=== PATIENT | male | born 1990 | race Caucasian/White ===

== ENCOUNTER 2016-08-15 01:28 | Emergency (ER) | payer OTHER ==
[~2016-08-15] VITALS: Ht 185.4 cm; Wt 72.1 kg
[~2016-08-15 01:28] MED LIST: BENTYL10 MG PO; LOMOTIL 0.025 M1 TA1 PO; NKHM; PEPCID20 MG PO; PHENERGAN25 M1 PO; PRILOSEC40 MG PO; PROPRANOLOL1 MG/ML IV; PROPRANOLOL10 MG PO; PROTONIX40 MG PO; Phenergan25 MG PO; TRAMADOL HCL50 MG PO; ULTRAM50 MG PO; ZANTAC150 MG PO; ZOFRAN4 MG PO
[2016-08-15] MEDS ORDERED: TRAMADOL HCL50 MG PO (01:39)
[2016-08-15] MEDS ORDERED: LYRICA25 M1 PO (01:41)
== END 2016-08-15 06:13 | disposition home or self-care (01) ==
LOC: ED 01:28
DX: S09.90XA Unspecified injury of head, initial encounter (principal); R41.82 Altered mental status, unspecified; F17.200 Nicotine dependence, unspecified, uncomplicated; Z88.6 Allergy status to analgesic agent; Z79.899 Other long term (current) drug therapy; V43.53XA Car driver injured in collision with pick-up truck in traffic accident, initial encounter; Y93.89 Activity, other specified; Y92.413 State road as the place of occurrence of the external cause; Y99.8 Other external cause status

== ENCOUNTER 2017-09-13 18:29 | Emergency (ER) | payer OTHER ==
[~2017-09-13] VITALS: Ht 175.2 cm; Wt 59.0 kg
[~2017-09-13 18:29] MED LIST changes: +LYRICA25 M1 PO
[2017-09-13 18:58] LABS: HEMATOCRIT 44.7 % (42.0-52.0); HEMOGLOBIN 14.9 g/dl (14.0-18.0); MEAN CELL VOLUME 86.6 fl (80.0-94.0); MEAN CORPUSCULAR HGB 28.9 pg (27.0-31.0); MEAN CORPUSCULAR HGB CONC 33.3 g/dl (33.0-37.0); MEAN PLATELET VOLUME 9.2 fl (9.6-12.3); PLATELET COUNT AUTOMATED 344 10*3/uL (130-400); RED BLOOD COUNT 5.16 10*6/uL (4.50-5.90); RED CELL DISTRI WIDTH 13.6 % (0-14.5); WHITE BLOOD COUNT 12.7 10*3/uL (4.8-10.8)
[2017-09-13 19:12] LABS: ALBUMIN 4.9 gm/dl (3.1-4.5); ALKALINE PHOSPHATASE 90 U/L (45-117); BUN 11 mg/dl (7-24); CHLORIDE 106 mmol/L (98-107); CREATININE 0.94 mg/dL (0.70-1.30); LIPASE 85 U/L (73-393); POTASSIUM 4.2 mmol/L (3.5-5.1); SGOT/AST 16 IU/L (3-35); SGPT/ALT 19 U/L (12-78); SODIUM 139 mmol/L (136-145); TOTAL PROTEIN 8.4 gm/dL (6.4-8.2)
[2017-09-13 19:21] LABS: PLATELET SUFFICIENCY NORMAL (NORMAL); TOTAL CELLS COUNTED 100 #CELLS
[2017-09-13 20:56] LABS: BILIRUBIN NEGATIVE (NEGATIVE); BLOOD NEGATIVE (NEGATIVE); CLARITY CLEAR (CLEAR); COLOR YELLOW (YELLOW); GLUCOSE NEGATIVE (NEGATIVE); KETONE 2+ (NEGATIVE); LEUKO ESTERASE NEGATIVE (NEGATIVE); NITRITE NEGATIVE (NEGATIVE); UROBILINOGEN 0.2 E.U./dl (0.2-1.0)
[2017-09-13 21:15] LABS: BACTERIA 1+; EPITHELIAL CELLS 0-2; RBC 0-2 rbc/hpf (0-2)
== END 2017-09-13 22:15 | disposition home or self-care (01) ==
LOC: ED 18:29
PROVIDERS: Nurse Practitioner
DX: R10.9 Unspecified abdominal pain (principal); Z79.899 Other long term (current) drug therapy; Z88.6 Allergy status to analgesic agent

== ENCOUNTER 2024-07-13 08:12 | Emergency (ER) | payer OTHER ==
[~2024-07-13] VITALS: Ht 185.4 cm; Wt 81.6 kg
[~2024-07-13 08:12] MED LIST changes: +CARAFATE1 G1 PO; +DICYCLOMINE HCL10 MG PO; +SUNMARK OMEPRAZ20 M1 PO; +ZANTAC 150150 MG PO
[2024-07-13] MEDS ORDERED: Ondansetron Hydrochloride 4 MG/2 ML VIAL IV ONE ×2 (08:30→11:00)
[2024-07-13] MEDS ORDERED: SODIUM CHLORIDE 0.9% 1,000 ML IV ONE (08:30)
[2024-07-13] MEDS ORDERED: IOHEXOL 300 MG/ML 100 ML VIAL IV ONE (08:30)
[2024-07-13] MEDS ORDERED: MORPHINE Sulfate 2 MG/ML SYR IV ONE (08:30)
[2024-07-13] MEDS ORDERED: methylPREDNISolone sod succ 125 MG VIAL IV ONE (08:30)
[2024-07-13 08:54] LABS: BASO % 0.3 % (0.0-1.0); HEMATOCRIT 42.7 % (42.0-52.0); MEAN CORPUSCULAR HGB 27.3 pg (27.0-31.0); MEAN CORPUSCULAR HGB CONC 33.3 g/dl (33.0-37.0); MEAN PLATELET VOLUME 8.4 fl (9.6-12.3); MONO # 0.5 10*3/uL (0.1-1.0); NEUT # 13.5 10*3/uL (2.3-7.9); NEUT % 85.2 % (47.0-73.0); PLATELET COUNT AUTOMATED 415 10*3/uL (130-400); RED BLOOD COUNT 5.21 10*6/uL (4.50-5.90); RED CELL DISTRI WIDTH 14.8 % (0-14.5); WHITE BLOOD COUNT 15.8 10*3/uL (4.8-10.8)
[2024-07-13 09:17] LABS: BUN 12 mg/dl (9-23); CHLORIDE 107 mmol/L (98-107); LIPASE 33 U/L (12-53); POTASSIUM 3.7 mmol/L (3.4-5.1)
[2024-07-13] MEDS ORDERED: Metoclopramide Hydrochloride 10 MG/2 ML VIAL IV ONE (09:20)
[2024-07-13] MEDS ORDERED: diphenhydrAMINE hydrochloride 50 MG/ML VIAL IV ONE (09:20)
[2024-07-13] MEDS ORDERED: HYDROmorphone Hydrochloride 1 MG/ML SYR IV ONE (11:00)
[2024-07-13] MEDS ORDERED: Haloperidol Lactate 5 MG/ML AMP IM ONE (11:00)
[2024-07-13] MEDS ORDERED: Ondansetron4 MG PO (11:01)
[2024-07-13] MEDS ORDERED: DICYCLOMINE HYD20 MG PO (11:01)
== END 2024-07-13 11:31 | disposition home or self-care (01) ==
LOC: ED 08:12
PROVIDERS: Emergency Medicine
DX: R10.30 Lower abdominal pain, unspecified (principal); R11.2 Nausea with vomiting, unspecified; Z88.6 Allergy status to analgesic agent